=== PATIENT | male | born 1995 | race Two or more races ===

== ENCOUNTER 2017-05-04 18:08 | Emergency (ER) | payer MEDICAID ==
[~2017-05-04] VITALS: Ht 170.2 cm; Wt 68.0 kg
[2017-05-04 18:55] VITALS: BP 123/73
[2017-05-04] MEDS ORDERED: IBUPROFEN400 MG ORAL (19:18)
--- NOTE | 2017-05-04 19:18 | Emergency Room Report ---
History of Present Illness General Chief Complaint: Skin Rash/Abscess Source: Patient Present Illness HPI 21-year-old male presents emergency department complaining of 6/10 in severity tenderness to the right thumb x2 weeks. Patient states that 2 weeks ago he has thumb smashed in a door at work and he has had swelling, and tenderness to the skin ever since. Patient denies bruising, erythema, open lesion. 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 Patient denies previous injury or pain upon movement patient states pain is exacerbated upon palpation and he describes it primarily as tenderness of the skin. Denies numbness tingling or loss of sensation or gross motor movements of the extremities, incontinence of bowel or bladder. Denies CP, Palpitations, LOC, AMS, dizziness, Changes in Vision, Sensation, paresthesias, or a sudden severe headache. Allergies: Coded Allergies: No Known Allergies (Unverified , 05/04/17) Patient History Past Medical History: see triage record Past Surgical History: none Pertinent Family History: none Immunizations: UTD Reviewed Nursing Documentation: PMH: Agreed, PSxH: Agreed Nursing Documentation-PMH Past Medical History: No Stated History Review of Systems All Other Systems: negative except mentioned in HPI Physical Exam Vital Signs Date Time Temp Pulse Resp B/P Pulse Ox O2 Delivery O2 Flow Rate FiO2 05/04/17 18:16 98.1 53 14 123/73 97 Room Air Sp02 EP Interpretation: reviewed, normal General Appearance: no apparent distress, alert, GCS 15, non-toxic Head: normocephalic, atraumatic Eyes: bilateral eye PERRL, bilateral eye normal inspection ENT: hearing grossly normal, normal pharynx, no angioedema, normal voice Neck: full range of motion, supple/symm/no masses Respiratory: lungs clear, normal breath sounds, speaking full sentences Cardiovascular #1: regular rate, rhythm, no edema, normal capillary refill Musculoskeletal: back normal, gait/station normal, normal range of motion, tender - superficial ttp , no appreciable bony ttp. thickened skin/ nodular, no erythema, no fluctuance to the palmar aspect of the right thumb. Neurologic: alert, oriented x3, responsive, motor strength/tone normal, sensory intact, speech normal Psychiatric: judgement/insight normal, memory normal, mood/affect normal Skin: normal color, no rash, warm/dry, well hydrated, other - thickened skin/ nodular, no erythema, no fluctuance to the palmar aspect of the right thumb. Medical Decision Making PA Attestation Dr. Dumont is my supervising Physician whom patient management has been discussed with. Diagnostic Impression: Primary Impression: Soft tissue lesion Additional Impression: Callus ER Course 21-year-old male presents emergency department complaining of 6/10 in severity tenderness to the right thumb x2 weeks. Patient states that 2 weeks ago he has thumb smashed in a door at work and he has had swelling, and tenderness to the skin ever since. Patient denies bruising, erythema, open lesion. 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 Patient denies previous injury or pain upon movement patient states pain is exacerbated upon palpation and he describes it primarily as tenderness of the skin. Ddx considered but are not limited to Fracture, dislocation, contusion, Sprain/ Strain/Spasm, callus, retained foreign body Vital signs: are WNL, pt. is afebrile H&PE are most consistent with possible retained foreign body vs callous, will also r/o fractures with imaging. ORDERS: - X-ray Right hand 3 views - negative for fx, Dislocation, or significant soft tissue injury or foreign body -- per preliminary read in ED by Dr. Dumont ED INTERVENTIONS: - Motrin PO DISCHARGE: At this time pt. is stable for d/c to home. Will provide printed patient care instructions, and any necessary prescriptions. Care plan and follow up instructions have been discussed with the patient prior to discharge. Last Vital Signs Date Time Temp Pulse Resp B/P Pulse Ox O2 Delivery O2 Flow Rate FiO2 05/04/17 18:55 98.1 64 14 123/73 97 Room Air Disposition: HOME, SELF-CARE Condition: Stable Scripts Ibuprofen* (MOTRIN*) 400 Mg Tablet 400 MG ORAL THREE TIMES A DAY, #30 TAB 0 Refills Prov: Kylie Salvador 05/04/17 Patient Instructions: Corns and Calluses Additional Instructions: Take medications as directed. Follow up with PCP in 3-5 days Return sooner to ED if new symptoms occur, or current symptoms become worse. - Please note that this Emergency Department Report was dictated using [employer] technology software, occasionally this can lead to erroneous entry secondary to interpretation by the dictation equipment. Kylie Salvador May 04, 2017 19:18
[2017-05-04 19:20] VITALS: BP 123/73
--- NOTE | 2017-05-05 10:58 | Diagnostic Imaging Report ---
Indications: Right hand pain Technique: 3 views of the right hand. Findings: Comparison: None. No fracture, dislocation, lytic destruction, periosteal reaction, surrounding soft tissue swelling, or other acute changes are demonstrated. No deformity, alignment abnormality, arthritic change, soft tissue calcification, or other chronic changes are demonstrated. IMPRESSION: Negative right hand series.
== END 2017-05-04 19:25 | disposition home or self-care (01) ==
LOC: EMR 18:30
DX: L84 Corns and callosities (principal); L98.9 Disorder of the skin and subcutaneous tissue, unspecified
CPT/HCPCS: 99283

== ENCOUNTER 2018-04-20 23:43 | Emergency (ER) | payer MEDICAID ==
[~2018-04-20] VITALS: Ht 167.6 cm; Wt 63.5 kg
[~2018-04-20 23:43] MED LIST: IBUPROFEN400 MG ORAL
[2018-04-21] MEDS ORDERED: Naloxone 1mg/ml 2ml IVP ONE (01:30)
--- NOTE | 2018-04-21 01:30 | Emergency Room Report ---
History of Present Illness General Chief Complaint: Substance Abuse Source: Patient, Family Member, EMS Present Illness HPI Is a 22-year-old male brought in by EMS for altered mental status. He lives with his mom. She said that he was very sleepy unable to get up. He was beating very slowly and shallow. So she called 911. Patient admit to using marijuana and had 1 small bottle sake today. Patient denies suicidal thoughts or homicidal thought. History is limited this patient because he is very sedated. Allergies: Coded Allergies: No Known Allergies (Unverified , 05/04/17) Patient History Past Medical History: none, see triage record, old chart reviewed Past Surgical History: none Pertinent Family History: none Social History: Reports: alcohol use, drug use - Marijuana Immunizations: other Reviewed Nursing Documentation: PMH: Agreed; PSxH: Agreed Nursing Documentation-PMH Past Medical History: No Stated History Review of Systems Eye: Denies: eye pain, blurred vision ENT: Denies: ear pain, nose congestion, throat swelling Respiratory: Denies: cough, shortness of breath Cardiovascular: Denies: chest pain, palpitations Gastrointestinal: Denies: abdominal pain, diarrhea, nausea, vomiting Musculoskeletal: Denies: back pain, joint pain Skin: Denies: rash Neurological: Denies: headache, numbness Endocrine: Denies: increased thirst, increased urine Hematologic/Lymphatic: Denies: easy bruising All Other Systems: negative except mentioned in HPI Physical Exam Vital Signs Date Time Temp Pulse Resp B/P (MAP) Pulse Ox O2 Delivery O2 Flow Rate FiO2 04/20/18 23:46 98.8 60 16 113/86 99 Room Air 98.8 vitals normal Sp02 EP Interpretation: reviewed, normal General Appearance: well appearing, no apparent distress, other - very sedated Head: normocephalic, atraumatic Eyes: bilateral eye PERRL, bilateral eye EOMI ENT: hearing grossly normal, normal pharynx Neck: full range of motion, supple, no meningismus Respiratory: chest non-tender, lungs clear, normal breath sounds Cardiovascular #1: regular rate, rhythm, no murmur Gastrointestinal: normal bowel sounds, non tender, no mass, no organomegaly, no bruit, non-distended Musculoskeletal: back normal, normal range of motion Skin: warm/dry Medical Decision Making Diagnostic Impression: Primary Impression: Substance abuse Additional Impression: Altered mental status Qualified Codes: R41.82 - Altered mental status, unspecified ER Course Per family, a friend said that he may have taken 3 Xanax. On repeat exam his pupils were pinpoint gave him Narcan. No response. His vital signs rest or status are stable here. We'll check labs and CT scan. Patient has no injury. No evidence of any lab abnormality. He will be observed until clinical sobriety at which point we'll discharge home. Patient slept of the night. Now awake and able. She said that he only had marijuana tonight. No drugs or alcohol. Lab Results Impression labs unremarkable CT/MRI/US Diagnostic Results CT/MRI/US Diagnostic Results : Imaging Test Ordered: CT head Impression negative per radiologist Last Vital Signs Date Time Temp Pulse Resp B/P (MAP) Pulse Ox O2 Delivery O2 Flow Rate FiO2 04/20/18 23:46 98.8 60 16 113/86 99 Room Air 98.8 Status: improved Disposition: HOME, SELF-CARE Condition: Improved Referrals: [facility]ERR[facility] (PCP) Patient Instructions: Cannabis Use Disorder Additional Instructions: Follow-up with your DrTangela in 7 days. Return if worse. BRAXTON BEAVERS M.D. Apr 21, 2018 01:30
[2018-04-21 01:49] LABS: BASOPHILS % (AUTO) 1.5 % (0.0-2.0); EOSINOPHILS % (AUTO) 6.5 % (0.0-3.0); HEMATOCRIT 49.4 % (42.0-52.0); HEMOGLOBIN 17.4 G/DL (14.2-18.0); LYMPHOCYTES % (AUTO) 34.6 % (20.0-45.0); MEAN CORPUSCULAR VOLUME 89 FL (80-99); MONOCYTES % (AUTO) 9.3 % (1.0-10.0); NEUTROPHILS % (AUTO) 48.2 % (45.0-75.0); PLATELET COUNT 197 K/UL (150-450); RED BLOOD COUNT 5.58 M/UL (4.70-6.10); RED CELL DISTRIBUTION WIDTH 10.2 % (11.6-14.8); WHITE BLOOD COUNT 6.6 K/UL (4.8-10.8)
[2018-04-21 01:57] LABS: ANION GAP 8 mmol/L (5-15); BLOOD UREA NITROGEN 12 mg/dL (7-18); CARBON DIOXIDE 31 MMOL/L (21-32); CHLORIDE 102 MMOL/L (98-107); POTASSIUM 3.9 MMOL/L (3.5-5.1); SODIUM 141 MMOL/L (136-145)
[2018-04-21 02:02] LABS: ALANINE AMINOTRANSFERASE 24 U/L (12-78); ALBUMIN 4.6 G/DL (3.4-5.0); ALBUMIN/GLOBULIN RATIO 1.4 (1.0-2.7); ALKALINE PHOSPHATASE 82 U/L (46-116); ASPARTATE AMINO TRANSFERASE 25 U/L (15-37); BILIRUBIN,TOTAL 0.5 MG/DL (0.2-1.0)
[2018-04-21 02:21] VITALS: BP 80/47
[2018-04-21 05:19] VITALS: BP 97/46
--- NOTE | 2018-04-21 09:37 | Diagnostic Imaging Report ---
Indication: Altered mental status Technique: Continuous helical CT scanning of the head was performed without intravenous contrast material. Axial and coronal 5 mm sections were generated. Radiation dose was minimized using automated exposure control Dose: Total Dose Length Product - DLP 1425.[address] Dose Index - CTDIvol(s) 70.38 mGy. Comparison: none Findings: The ventricular system is normal in size and configuration. There is no shift of midline structures. No abnormal extra-axial fluid collections are noted. There is no evidence of intracerebral bleeding. No other abnormal high or low density areas are noted within the brain. Normal howard-white differentiation. Intact calvarium. Visualized orbits and sinuses are unremarkable. Impression: Normal CT scan of the head without contrast material. This agrees with the preliminary interpretation provided overnight by [facility]. The CT scanner at [facility] is accredited by the [employer] and the scans are performed using protocols designed to limit radiation exposure to as low as reasonably achievable to attain images of sufficient resolution adequate for diagnostic evaluation.
== END 2018-04-21 05:19 | disposition home or self-care (01) ==
LOC: EDBD 23:43 → EMR 23:59
DX: F12.10 Cannabis abuse, uncomplicated (principal); R41.82 Altered mental status, unspecified
CPT/HCPCS: 36415; 70450; 80053; 80307; 80329; 82962; 85025; 96361; 96374; 96375; 99284; J2310